=== PATIENT | male | born 1980 | race Caucasian/White ===

== ENCOUNTER 2018-10-15 16:22 | Emergency (ER) | payer OTHER ==
[~2018-10-15] VITALS: Ht 167.6 cm; Wt 88.5 kg
[~2018-10-15 16:22] MED LIST: CARAFATE 1 GM TA1 G1 PO; PEPCID40 MG PO; PERCOCET 5-3251 EACH PO; PRILOSEC 20 MG20 MG PO
[2018-10-15 16:50] LABS: ABSOLUTE NEUTROPHILS 4.1 thou/uL (1.4-8.2); BASOPHILS 0.7 % (0.0-2.0); EOSINOPHILS 1.4 % (0.0-3.0); HEMATOCRIT 40.9 % (42.0-52.0); HEMOGLOBIN 13.8 gm/dL (14.0-18.0); LYMPHOCYTES 31.9 % (24.0-44.0); MCH 28.2 pg (26.0-34.0); MCHC 33.7 g/dL (28.0-37.0); MCV 83.5 fL (80.0-100.0); MONOCYTES 9.7 % (1.0-8.0); PLATELET COUNT 310 thou/uL (150-400); POLYS 56.3 % (36.0-66.0); RDW 14.1 % (10.5-14.5); WBC 7.3 thou/uL (4.0-11.0)
[2018-10-15 16:53] LABS: POC CA IONIZED 4.6 mg/dL (4.5-5.3); POC CREATININE 1.1 mg/dL (0.6-1.3); POC HEMOGLOBIN 13.3 g/dL (14.0-18.0); POC POTASSIUM 4.8 mmol/L (3.5-5.1)
[2018-10-15] MEDS ORDERED: AMITRIPTYLINE H25 M4 PO (16:54)
[2018-10-15] MEDS ORDERED: CLONIDINE HCL0.2 M2 PO (16:54)
[2018-10-15 16:58] LABS: CALCIUM 9.4 mg/dL (8.5-10.1); CREATININE 1.2 mg/dL (0.7-1.3); POTASSIUM 4.8 mmol/L (3.5-5.1)
[2018-10-15 17:04] LABS: ALBUMIN 3.9 g/dL (3.4-5.0); TOTAL BILIRUBIN 0.1 mg/dL (<0.1-1.0); TOTAL PROTEIN 7.4 g/dL (6.4-8.2)
[2018-10-15 17:58] LABS: AMP/METHAMP Negative (Negative); BARBITURATES Negative (Negative); BENZODIAZEPINES Negative (Negative); COCAINE Negative (Negative); METHADONE Negative (Negative); OPIATES Negative (Negative); PCP Negative (Negative)
[2018-10-15] MEDS ORDERED: FLEXERIL PO (18:32)
[2018-10-15] MEDS ORDERED: NORCO 5-325 TA1 EACH PO (18:32)
[2018-10-15] MEDS ORDERED: IBUPROFEN 400400 M2 PO (18:32)
[2018-10-15] MEDS ORDERED: SENNA8.6 MG PO (18:32)
[2018-10-15] MEDS ORDERED: ZOFRAN4 MG PO (19:13)
[2018-10-15 19:21] VITALS: BP 137/87
== END 2018-10-15 19:23 | disposition home or self-care (01) ==
LOC: ER 16:22
PROVIDERS: Student in an Organized Health Care Education/Training Program
DX: S20.212A Contusion of left front wall of thorax, initial encounter (principal); R10.12 Left upper quadrant pain; F41.9 Anxiety disorder, unspecified; G47.00 Insomnia, unspecified; Z88.1 Allergy status to other antibiotic agents; Z87.891 Personal history of nicotine dependence; V59.88XA Occupant (driver) (passenger) of pick-up truck or van injured in other specified transport accidents, initial encounter; Y99.0 Civilian activity done for income or pay; Y92.89 Other specified places as the place of occurrence of the external cause; Y99.8 Other external cause status